=== PATIENT | female | born 1960 | race Caucasian/White ===

== ENCOUNTER 2020-02-19 20:15 | Emergency (ER) | payer BC, SELFPAY ==
--- NOTE | ~2020-02-19 | XR_ITS ---
EXAMINATION: XR chest 2V DATE: 02/19/2020 21:57 INDICATION: Right chest and clavicle pain TECHNIQUE: PA and lateral views of the chest are obtained. COMPARISON: 01/28/2019 FINDINGS: The lungs are free of acute opacities. There is no pleural effusion or pneumothorax. The ca rdiomediastinal silhouette is normal. There is mild thoracic spondylosis. The right clavicle is unrem arkable. IMPRESSION: 1. No acute cardiopulmonary abnormality. Reviewed, dictated and finalized at location A.
--- NOTE | 2020-02-19 20:20 | ECG_ITS ---
Measurements Intervals [place] Rate: 115 P: 34 [place]: 160 QRS: -28 QRSD: 73 T: 10 QT: 302 QTc: 419 Interpretive Statements SINUS TACHYCARDIA POOR R WAVE PROGRESSION, ANTERIOR LEADS INFERIOR INFARCT, AGE INDETERMINATE BASELINE ARTIFACT- I, III, AVR, AVL, AVF ABNORMAL ECG Electronically Signed On 02-23-2020 9:00:21 CDT by Jaden Helton D.O.
[2020-02-19 20:21] VITALS: BP 176/105; PULSE 122; RESP 20; TEMP 36.8; O2SAT 98
[2020-02-19 21:34] VITALS: PULSE 99
[2020-02-19 21:35] VITALS: BP 122/81; PULSE 97; RESP 18; O2SAT 99
[2020-02-19 21:47] LABS: Basophils Percent Auto 0.6 % (0.2-1.2); Eosinophils Absolute Auto 0.1 K/mm3 (0-0.3); Eosinophils Percent Auto 1.5 % (0-4.4); Hemoglobin 12.6 g/dL (12.0-15.0); Immature Granulocyte Absolute 0.01 K/mm3 (0.00-0.031); Immature Granulocyte Percent A 0.1 % (0-0.5); Lymphocytes Absolute Auto 2.53 K/mm3 (0.9-3.2); Lymphocytes Percent Auto 37.9 % (18.3-44.2); Mean Corpuscular HGB Conc 33.2 g/dl (32-36); Mean Corpuscular Hemoglobin 29.2 pg (26-34); Mean Platelet Volume 9.3 fl (7.4-10.4); Monocytes Absolute Auto 0.4 K/mm3 (0.1-0.6); Monocytes Percent Auto 6.1 % (2.6-8.5); Neutrophils Absolute Auto 3.6 K/mm3 (1.3-6.7); Neutrophils Percent Auto 53.8 % (45.5-73.1); Platelet Count Result 246 k/mm3 (150-375); Red Blood Count 4.32 M/mm3 (4.2-5.4); Red Cell Distribution Width 12.4 % (11.5-14.5); White Blood Count 6.7 K/mm3 (4.5-10.0)
[2020-02-19 22:00] LABS: Blood Urea Nitrogen 26 mg/dL (7-17); Calcium 9.2 mg/dL (8.4-10.2); Carbon Dioxide 24 mmol/L (22-30); Chloride 99 mmol/L (98-107); Estimated CRCL calculation 102 ml/min; Estimated Glomerular Filt Rate > 60; Glucose 195 mg/dL (65-105); Potassium 4.4 mmol/L (3.4-5.0); Sodium 132 mmol/L (137-145)
[2020-02-19 22:04] LABS: D Dimer 0.27 ug/mL (<0.48)
[2020-02-19 22:12] LABS: Troponin I < 0.012 ng/mL (0.000-0.034)
--- NOTE | 2020-02-19 23:14 | ED.CHESTPAIN ---
HPI - Chest Pain General Chief Complaint: Chest Pain Stated Complaint: R sided CP, lower neck swelling Time Seen by Provider: 02/19/20 21:20 Source: patient Mode of arrival: ambulatory History of Present Illness HPI narrative: 59-year-old female Complains of a history of right arm shoulder and chest pain for weeks to months The last couple of days it has been more in the upper right chest and around the medial clavicle She is also noticed some swelling in the upper chest There is no cough or fever No exertional symptoms MD complaint: chest pain Onset (ago): week(s) Timing of current episode: episodic Prior episodes: Yes Onset: during rest and during exertion Pain location: right chest and lateral Pain radiation: right shoulder Severity: mild Quality: aching and heaviness Relieving factors: nothing Exacerbating factors: other (Some movements of her arm) Related Data Allergies Allergy/AdvReac Type Severity Reaction Status Date / Time NKDA Allergy Unknown Uncoded 04/20/03 15:17 NKFA Allergy Unknown Uncoded 04/20/03 15:17 Review of Systems Review of Systems: All systems reviewed & are unremarkable except as noted in HPI and below Constitutional: Constitutional: Denies fever(s) and Denies weakness Eyes: Eyes: Denies no additional eye complaints ENT: Denies dysphagia and Denies sore throat Cardiovascular: Cardiovascular: Reports chest pain, Denies rapid heart rate, Reports radiating jaw, neck or arm pain and Denies slow heart rate Respiratory: Respiratory: Denies cough and Denies dyspnea Gastrointestinal: Gastrointestinal: Denies diarrhea and Denies vomiting Musculoskeletal: Musculoskeletal: Reports joint swelling (sternoclavicular on r) Neurologic: Denies headache(s), Denies focal weakness, Denies numbness and Denies weakness Exam Const: General: alert Orientation/consciousness: patient oriented x3 HENMT: Head: normal to inspection Eyes: Conjunctivae: conjunctivae normal EOM: EOMs intact bilaterally Neck: Neck: no lymphadenopathy Resp: Effort & Inspection: normal respiratory effort Auscultation: clear to auscultation bilaterally Cardio: Rate: regular rate Rhythm: regular rhythm Skin: General skin exam: normal color Neuro: General: patient oriented x3 and moves all extremities Extrem: Other: there is swelling and mild tenderness to the right sc joint Course Course Emergency Course: c/o seem to be ms related, hs =1, w/u neg Vital Signs Vital signs: Vital Signs Temperature 36.8 C 02/19/20 20:21 Pulse Rate 122 H 02/19/20 20:21 Respiratory Rate 20 02/19/20 20:21 Blood Pressure 176/105 H 02/19/20 20:21 Pulse Oximetry 98 02/19/20 20:21 Temperature 36.8 C 02/19/20 20:21 Pulse Rate 99 02/19/20 23:19 Respiratory Rate 18 02/19/20 23:19 Blood Pressure 110/68 02/19/20 23:19 Pulse Oximetry 98 02/19/20 23:19 MDM - Chest Pain Lab Data Result diagrams: 02/19/20 21:41 02/19/20 21:41 Labs: Lab Results 02/19/20 02/19/20 02/19/20 Range/Units 21:41 21:41 21:41 WBC 6.7 (4.5-10.0) K/mm3 RBC 4.32 (4.2-5.4) M/mm3 Hgb 12.6 (12.0-15.0) g/dL Hct 38.0 (37.0-47.0) % MCV 88.0 (80-100) fl MCH 29.2 (26-34) pg MCHC 33.2 (32-36) g/dl RDW 12.4 (11.5-14.5) % Plt Count 246 (150-375) k/mm3 MPV 9.3 (7.4-10.4) fl Immature Gran % (Auto) 0.1 (0-0.5) % Neut % (Auto) 53.8 (45.5-73.1) % Lymph % (Auto) 37.9 (18.3-44.2) % Stanton % (Auto) 6.1 (2.6-8.5) % Eos % (Auto) 1.5 (0-4.4) % Baso % (Auto) 0.6 (0.2-1.2) % Lymph # (Auto) 2.53 (0.9-3.2) K/mm3 Stanton # (Auto) 0.4 (0.1-0.6) K/mm3 Eos # (Auto) 0.1 (0-0.3) K/mm3 Baso # (Auto) 0.0 (0.0-0.1) K/mm3 Abs Immat Gran (auto) 0.01 (0.00-0.031) K/mm3 Absolute Neuts (auto) 3.6 (1.3-6.7) K/mm3 Absolute Nucleated RBC 0.0 (0.0-0.012) K/mm3 Nucleated RBC % 0.0 (0.0-0.2) % D-Dimer 0.27 (<0.48)
[2020-02-19 23:19] VITALS: BP 110/68; PULSE 99; RESP 18; O2SAT 98
== END 2020-02-20 00:15 | disposition home or self-care (01) ==
PROVIDERS: Emergency Provider Emergency Medicine; PCP Internal Medicine Endocrinology, Diabetes & Metabolism
DX: M19.011 Primary osteoarthritis, right shoulder (principal); R94.31 Abnormal electrocardiogram [ECG] [EKG]; R00.0 Tachycardia, unspecified
CPT/HCPCS: 36415; 71046; 80048; 84484; 85025; 85380; 93005; 99284

== ENCOUNTER 2020-02-21 10:25 | Emergency (ER) | payer BC, SELFPAY ==
[2020-02-21] VITALS (23 sets, daily range): BP systolic 108–187; BP diastolic 64–80; PULSE 92–126; RESP 10–24; TEMP 37.2; O2SAT 97–100
--- NOTE | ~2020-02-21 | XR_ITS ---
EXAMINATION: XR chest 2V DATE: 02/21/2020 10:58 INDICATION: Heart palpitations TECHNIQUE: Frontal and lateral views of the chest are obtained COMPARISON: 02/19/2020 FINDINGS: The lungs are free of acute opacities. There is no pleural effusion or pneumothorax. The ca rdiomediastinal silhouette is normal. There is mild thoracic spondylosis. IMPRESSION: 1. No acute cardiopulmonary abnormality. Reviewed, dictated and finalized at location A.
--- NOTE | ~2020-02-21 | CT_ITS ---
EXAMINATION: CTA chest PE protocol DATE: 02/21/2020 11:42 INDICATION: Chest pain and heart palpitations TECHNIQUE: Computed tomography angiography (CTA) of the chest was performed with 100 mL Omnipaque-350 intravenous contrast timed to evaluate the pulmonary arteries. Coronal maximum intensity projection 3D-reconstructions were created by the technologist. The dose-length product (DLP) was 761.42 mGy-cm. Automated exposure control and iterative reconstruction technique were employed. COMPARISON: None. FINDINGS: The pulmonary arteries are well-opacified. No pulmonary embolism is identified. The lungs a re free of acute opacities. There is no pleural effusion or pneumothorax. No pathologically enlarged thoracic lymph nodes are identified. The heart size is normal. The liver is diffusely low in attenuat ion when compared with the spleen, consistent with hepatic steatosis. There is moderate thoracic spon dylosis. IMPRESSION: 1. No pulmonary embolism or acute cardiopulmonary abnormality. Reviewed, dictated and finalized at location A.
--- NOTE | 2020-02-21 10:31 | ECG_ITS ---
Measurements Intervals [place] Rate: 116 P: 50 [place]: 136 QRS: -23 QRSD: 81 T: 44 QT: 314 QTc: 437 Interpretive Statements SINUS TACHYCARDIA INFERIOR INFARCT, AGE INDETERMINATE BASELINE ARTIFACT- I, II ABNORMAL ECG Electronically Signed On 02-21-2020 15:01:57 CDT by Jaden Helton D.O.
[2020-02-21 10:50] LABS: Basophils Percent Auto 0.3 % (0.2-1.2); Eosinophils Absolute Auto 0.1 K/mm3 (0-0.3); Eosinophils Percent Auto 1.5 % (0-4.4); Hematocrit 39.2 % (37.0-47.0); Immature Granulocyte Absolute 0.02 K/mm3 (0.00-0.031); Immature Granulocyte Percent A 0.3 % (0-0.5); Lymphocytes Absolute Auto 2.09 K/mm3 (0.9-3.2); Lymphocytes Percent Auto 30.5 % (18.3-44.2); Mean Corpuscular HGB Conc 33.2 g/dl (32-36); Mean Corpuscular Volume 87.5 fl (80-100); Mean Platelet Volume 9.7 fl (7.4-10.4); Monocytes Absolute Auto 0.4 K/mm3 (0.1-0.6); Monocytes Percent Auto 5.5 % (2.6-8.5); Neutrophils Absolute Auto 4.3 K/mm3 (1.3-6.7); Neutrophils Percent Auto 61.9 % (45.5-73.1); Platelet Count Result 272 k/mm3 (150-375); Red Blood Count 4.48 M/mm3 (4.2-5.4); Red Cell Distribution Width 12.3 % (11.5-14.5); White Blood Count 6.9 K/mm3 (4.5-10.0)
[2020-02-21 11:00] LABS: INR 0.8; Prothrombin Time 11.2 Seconds (11.1-14.7)
[2020-02-21 11:01] LABS: Partial Thromboplastin Time 27.5 SECONDS (22.3-36.8)
--- NOTE | 2020-02-21 11:06 | ED.ARRPALP ---
HPI - Arrhythmia/Palpitations General Chief Complaint: Arrhythmia/Palpitations Stated Complaint: Vibration in chest Time Seen by Provider: 02/21/20 10:27 Source: RN notes reviewed and old records reviewed History of Present Illness HPI narrative: Patient presents emergency department from home for palpitations. Patient states that Vinayak when she has a vibration in her left chest. She states she feels this when she takes a deep breath is located over the left lateral chest and does not radiate. Patient states that the symptoms will come and go. She denies any fevers or chills chest pain shortness of breath abdominal pain or any other symptoms Related Data Home Medications Medication Instructions Recorded Confirmed aspirin 650 mg PRN 02/21/20 glipizide 5 mg PO 02/21/20 liraglutide [Victoza 3-Cornell] 1.8 mg SUBCUT 02/21/20 lisinopril-hydrochlorothiazide 20 - 25 tablet 02/21/20 metformin 1,000 mg PO 02/21/20 Allergies Allergy/AdvReac Type Severity Reaction Status Date / Time No Known Allergies Allergy Verified 02/21/20 10:42 Review of Systems Review of Systems: Narrative: Gen.: Denies fevers or chills ENT: Denies congestion Respiratory: Denies shortness of breath or cough CV: See HPI GI: Denies abdominal pain nausea, emesis or diarrhea denies burning, urgency, frequency or hematuria Musculoskeletal: Denies back pain or muscle pain Neuro: Denies numbness, tingling, weakness or focal weakness Skin: Denies rash Except as documented, all other systems reviewed and negative [facility] Past Medical History Medical History (Updated 02/21/20 @ 14:22 by Sergio Driver DO) Hypertension Social History Social History (Updated 02/21/20 @ 11:06 by Sergio Driver DO) Smoking status: Never smoker Exam Narrative: Exam Narrative: APPEARANCE: No acute distress, nontoxic, resting in bed EYES: EOMI HEENT: Normocephalic, atraumatic, OMM RESPIRATORY: No respiratory distress Clear to auscultation bilaterally with no rhonchi wheezing or rales. CARDIOVASCULAR: Regular rate and rhythm without murmurs rubs or gallops. ABDOMINAL: Soft, nontender, nondistended, no rebound or guarding MUSCULOSKELETAl: Moves all extremities. No clubbing, cyanosis or edema. NEURO: Awake and alert. Following commands, speech normal, no focal deficits SKIN:: Warm, dry. No rashes lesions or abrasions PSYCHIATRIC: Normal affect/mood, Course Course Emergency Course: Reviewed patient's old records. Discussed with patient results of workup and diagnosis. Discussed need for follow-up with primary care, proper use of medication, and reasons to return to the emergency department. Patient understands and agrees to current treatment plan Vital Signs Vital signs: Vital Signs Temperature 98.9 F 02/21/20 10:29 Pulse Rate 126 H 02/21/20 10:29 Respiratory Rate 16 02/21/20 10:29 Blood Pressure 187/80 H 02/21/20 10:29 Pulse Oximetry 97 02/21/20 10:29 Temperature 98.9 F 02/21/20 10:29 Pulse Rate 94 02/21/20 14:24 Respiratory Rate 12 02/21/20 14:24 Blood Pressure 108/64 02/21/20 12:46 Pulse Oximetry 98 02/21/20 14:24 MDM - Arrhythmia/Palpitations MDM Narrative Medical decision making narrative: Patient's EKGs and labs are without significant high risk changes. Cardiac risk factors reviewed. Patient is felt likely low risk for ACS and reasonable for further risk stratification testing as an outpatient. Pain no aneurysm pneumonia or PE seen on CTA chest patient is felt to be a reasonable candidate for continued evaluation as an outpatient Lab Data Result diagrams: 02/21/20 10:43 02/21/20 10:43 Labs: Lab Results 02/21/20 02/21/20 02/21/20 Range/Units 10:43 10:43 10:43 WBC 6.9 (4.5-10.0) K/mm3 RBC 4.48 (4.2-5.4) M/mm3 Hgb 13.0 (12.0-15.0) g/dL Hct 39.2 (37.0-47.0) % MCV 87.5 (80-100) fl MCH 29.0 (26-34) pg MCHC 33.2 (32-36) g/dl RDW 12.3 (11.
[2020-02-21 11:16] LABS: Troponin I < 0.012 ng/mL (0.000-0.034)
[2020-02-21 11:19] LABS: Blood Urea Nitrogen 25 mg/dL (7-17); Calcium 9.4 mg/dL (8.4-10.2); Carbon Dioxide 23 mmol/L (22-30); Chloride 99 mmol/L (98-107); Estimated CRCL calculation 100 ml/min; Estimated Glomerular Filt Rate > 60; Glucose 275 mg/dL (65-105); Magnesium 1.8 mg/dL (1.6-2.3); Sodium 132 mmol/L (137-145)
[2020-02-21] MEDS: SODIUM CHLORIDE 0.9% IV 1,000 ML 999 ML IV CONT (14:00)
[2020-02-21 14:16] LABS: Troponin I < 0.012 ng/mL (0.000-0.034)
== END 2020-02-21 14:44 | disposition home or self-care (01) ==
PROVIDERS: Emergency Provider Emergency Medicine; PCP Internal Medicine Endocrinology, Diabetes & Metabolism
DX: R00.2 Palpitations (principal); I10 Essential (primary) hypertension; Z79.84 Long term (current) use of oral hypoglycemic drugs; R00.0 Tachycardia, unspecified; R94.31 Abnormal electrocardiogram [ECG] [EKG]
CPT/HCPCS: 36415; 71046; 71275; 80048; 83735; 84443; 84484; 85025; 85610; 85730; 93005; 96360; 99284; J7030; Q9967

== ENCOUNTER 2020-09-08 07:54 | Outpatient (CLI) | payer BC, SELFPAY ==
--- NOTE | ~2020-09-08 | US_ITS ---
EXAMINATION: US art doppler w press LE BI DATE: 09/08/2020 09:15 INDICATION: Diabetic foot TECHNIQUE: Segmental pressures and plethysmographic and Doppler waveforms of the brachial and lower e xtremity arteries were obtained. COMPARISON: None. FINDINGS: Right and left brachial artery pressures of 143m Hg and 149m Hg, respectively, are concordant (normal difference <= 30 mmHg). The left high-thigh index is 1.13 (normal > 1.2). The right high thigh press ure index was unable to be obtained due to inability to occlude the vessels in the right thigh. The right ankle-brachial index (DEVON) is 1.16 (normal >= 0.9-1). The right great toe-brachial index (T BI) is 0.94 (normal >= 0.6-0.8). The right lower extremity segmental pressure gradients are normal (n ormal gradients <= 20-30 mmHg between adjacent levels on the same leg or the same levels on the two l egs). Arterial waveforms are triphasic with brisk systolic upstrokes throughout the right lower limb. The left DEVON is 1.01. The left TBI is unable to be obtained due to inability to occlude the vessel. T he left lower extremity segmental pressure gradients are normal accounting for likely artifactually e levated pressure at the left [id number] popliteal artery. Arterial waveforms are triphasic at the left common femoral, popliteal and posterior tibial arteries and biphasic at the left superficial fe moral and dorsalis pedis arteries with brisk systolic upstrokes throughout. IMPRESSION: 1. Normal DEVON's bilaterally. No significant occlusive disease. Reviewed, dictated and finalized at location A. CTOR NON PROFIT
== END 2020-09-08 07:55 | disposition home or self-care (01) ==
PROVIDERS: PCP Internal Medicine; Visit Provider Podiatrist Foot & Ankle Surgery
DX: E11.621 Type 2 diabetes mellitus with foot ulcer (principal); L97.529 Non-pressure chronic ulcer of other part of left foot with unspecified severity
CPT/HCPCS: 93923

== ENCOUNTER 2021-07-08 13:15 | Emergency (ER) | payer BC, SELFPAY ==
[2021-07-08 13:30] VITALS: BP 140/81; PULSE 118; RESP 16; TEMP 36.5; O2SAT 99
--- NOTE | 2021-07-08 14:17 | ED.FEMALEGU ---
HPI - Female Genitourinary General Chief complaint: Urogenital-Female Stated complaint: uti Time Seen by Provider: 07/08/21 14:18 Source: patient, RN notes reviewed and old records reviewed Mode of arrival: ambulatory Limitations: no limitations History of Present Illness HPI Narrative: 60 YEAR OLD FEMALE WHO PRESENTS TO [facility] WITH COMPLAINTS OF A FEW WEEKS OF BURNING WITH URINATION, DARKER URINE THAN NORMAL WITH SOME VAGINAL ITCHING.PATIENT STATES THAT SHE HAS BEEN DRINKING MORE CAFFEINE THAN USUAL. PATIENT DENIES ANY SUPRAPUBIC PAIN OR ANY CVA TENDERNESS, NO FEVERS CHILLS OR SWEATS, DENIES ANY NAUSEA OR VOMITING OR DIARRHEA. SHE STATES THAT SHE HAS TAKEN SOME AZO FOR HER SYMPTOMS THE PAST 2 DAYS. MD elicited complaint: dysuria Related Data Home Medications Medication Instructions Recorded Confirmed glipizide 5 mg PO 02/21/20 liraglutide [Victoza 3-Cornell] 1.8 mg SUBCUT 02/21/20 lisinopril-hydrochlorothiazide 20 - 25 tablet 02/21/20 metformin 1,000 mg PO 02/21/20 Allergies Allergy/AdvReac Type Severity Reaction Status Date / Time No Known Allergies Allergy Verified 07/08/21 13:36 Review of Systems Review of Systems: CONSTITUTIONAL: Denies fever, chills, or sweats. EYES: Denies visual changes, redness, or discharge. ENT: Denies rhinorrhea, congestion, sore throat, or otalgia. CARDIOVASCULAR: Denies chest pain, palpitations, or edema. RESPIRATORY: Denies cough or dyspnea. GASTROINTESTINAL: Denies abdominal pain, nausea, vomiting, or diarrhea. GENITOURINARY: POSITIVE dysuria NO VISIBLE hematuria, SOME VAGINAL ITCHING. SKIN: Denies rash or itching. MUSCULOSKELETAL: Denies back pain, joint pain, or myalgia. NEUROLOGIC: Denies headache, numbness, or weakness. PSYCHIATRIC: Denies anxiety or depression. All systems reviewed & are unremarkable except as noted in HPI and below PMFSH Past Medical History Medical History (Updated 07/14/21 @ 20:00 by Mayi Lal NP) Bronchitis Diabetes Hypertension Post-menopausal UTI (urinary tract infection) Surgical History Surgical History (Updated 07/14/21 @ 20:00 by Mayi Lal NP) Previous section X2 Family History Family History (Updated 07/14/21 @ 20:01 by Mayi Lal NP) Other Family history non-contributory Social History Social History (Updated 07/14/21 @ 20:01 by Mayi Lal NP) Smoking status: Never smoker Alcohol intake: current Alcohol use details: RARE SOCIAL Substance use: never Living arrangements: with family Gender identity (if verbalized by the patient): Female Comments At time of signature, agree with nursing past medical, surgical, social and family history. There is no relevant family history pertinent to the presenting complaint Exam Narrative: GENERAL: Well-appearing, well-nourished, and in no acute distress. HEAD: Normocephalic, atraumatic. EYES: PERRLA and EOMI. ENT: Nares clear, no rhinorrhea or epistaxis. Mucous membranes moist.TM 'S NORMAL THROAT NORMAL NECK: Supple.NO LYMPHADENOPATHY CHEST: Clear to auscultation. No respiratory distress.SAO2 99% on room air HEART: Regular rate and rhythm. No murmur heard. Normal peripheral pulses. ABDOMEN: Soft, nontender, nondistended, normal active bowel sounds.no suprapubic tenderness or any CVA tenderness on palpation, some dysuria EXTREMITIES: Normal range of motion. No edema. SKIN: Warm, dry, no rash. NEURO: No focal deficits. Alert and oriented x3. Course Vital Signs Vital signs: Vital Signs Temperature 36.5 C 07/08/21 13:30 Pulse Rate 118 H 07/08/21 13:30 Respiratory Rate 16 07/08/21 13:30 Blood Pressure 140/81 07/08/21 13:30 Pulse Oximetry 99 07/08/21 13:30 Temperature 36.5 C 07/08/21 13:30 Pulse Rate 118 H 07/08/21 13:30 Respiratory Rate 16 07/08/21 13:30 Blood Pressure 140/81 07/08/21 13:30 Pulse Oximetry 99 07/08/21 13:30 MDM - Female Genitourinary Differential Diagnosis Differen
== END 2021-07-08 14:41 | disposition home or self-care (01) ==
PROVIDERS: Emergency Provider Registered Nurse; PCP Internal Medicine
DX: N39.0 Urinary tract infection, site not specified (principal); N89.8 Other specified noninflammatory disorders of vagina; I10 Essential (primary) hypertension
CPT/HCPCS: 81003; 87086; 87088; 99213; G0463

== ENCOUNTER → 2021-08-28 17:06 | Outpatient (CLI) | payer BC, SELFPAY ==
--- NOTE | ~2021-08-28 | DEXA_ITS ---
Bone Density Report Name: Sandy Senior Age: 60 Sex: Female Ethnicity: White Date of : 1960 Indication: postmenopausal; screening for osteoporosis; height loss; Referring Provider: Jonathan, Kulwinder Han Study: Bone densitometry was performed. Exam Date: August 28, 2021 Accession number: [id number] Bone Density: Region BMD T-score Z-score Classification AP Spine (L1-L4) 1.224 1.6 2.9 Normal Femoral Neck (Left) 1.224 3.4 4.6 Normal Total Hip (Left) 1.249 2.5 3.4 Normal Femoral Neck (Right) 1.207 3.2 4.5 Normal Total Hip (Right) 1.261 2.6 3.5 Normal Total Hip Mean 1.255 2.6 3.5 Normal World Health Organization criteria for BMD impression classify patients as: Normal (T-score at or above -1.0), Osteopenia (T-score between -1.0 and -2.5), or Osteoporosis (T-score at or below -2.5). 10-year Fracture Risk: FRAX not reported because: All T-scores for Spine Total, Hip Total, Femoral Neck at or above -1.0 Clinical Information Provided by Patient: Has used the following medications: Vitamin D Patient maximum height was 70 Menopause Age: 53 No regular weight bearing exercise Drinks caffeinated beverages Onset of menses at age 15 Number of children 2 Impression: The patient has normal bone mass. Discussion: LOW RISK OF FRACTURE; BONE DENSITY IS WELL ABOVE THE MINIMUM DESIRABLE LEVEL AND ABOVE AVERAGE FOR AGE AND SEX AT ALL SKELETAL SITES TESTED. This person's bone density is above expected limits for age and sex. This is rarely clinically significant, but should be pursued if there are significant musculoskeletal complaints. The patient should follow a healthful lifestyle (good nutrition with adequate calcium and vitamin D, and appropriate weight-bearing exercise). Follow-Up: Consider repeating this study in 5 years or sooner if there is some new clinical indication. Reported by: LING on 08/28/2021 5:35:00 PM. Reviewed, dictated and finalized at location ARod DAWKINS
== END ==
PROVIDERS: PCP Internal Medicine; Visit Provider Internal Medicine
DX: Z78.0 Asymptomatic menopausal state (principal); E78.2 Mixed hyperlipidemia; E11.9 Type 2 diabetes mellitus without complications; I10 Essential (primary) hypertension
CPT/HCPCS: 77080

== ENCOUNTER → 2021-10-17 07:10 | Outpatient (CLI) | payer BC, SELFPAY ==
--- NOTE | ~2021-10-17 | MM_ITS ---
EXAMINATION: MM screening [place] BI w derik HISTORY: Screening mammogram TECHNIQUE: Craniocaudal and mediolateral oblique 3-D tomosynthesis images were obtained and synthetic 2-D images were generated. CAD analysis was submitted and interpreted. COMPARISON: No prior mammogram is available for comparison at this institution. BREAST PARENCHYMAL COMPOSITION: The breasts are almost entirely fatty. FINDINGS: RIGHT BREAST: There is no evidence of suspicious mass, calcification, or architectural distortion to suggest malignancy. LEFT BREAST: An asymmetry is present in the middle third of the slightly outer breast 4.5 cm from the nipple on the craniocaudal view. IMPRESSION: 1. Left breast asymmetry on the craniocaudal view. 2. Additional mammographic views and possible breast ultrasound are recommended. BI-RADS Category 0: Incomplete: Needs additional imaging evaluation. Reviewed, dictated and finalized at location A. LRY MANAGER IMPRESSION: 1. Left breast asymmetry on the craniocaudal view. 2. Additional mammographic views and possible breast ultrasound are recommended . BI-RADS Category 0: Incomplete: Needs additional imaging evaluation.
== END ==
PROVIDERS: PCP Internal Medicine; Visit Provider Internal Medicine
DX: Z12.31 Encounter for screening mammogram for malignant neoplasm of breast (principal); R92.8 Other abnormal and inconclusive findings on diagnostic imaging of breast
CPT/HCPCS: 77063; 77067

== ENCOUNTER 2021-11-10 13:14 | Outpatient (CLI) | payer BC, SELFPAY ==
--- NOTE | ~2021-11-10 | MMUS_ITS ---
EXAMINATION: MM diagnostic antonia LT w derik, US breast LT limited HISTORY: Follow-up left breast mass TECHNIQUE: Additional 3-D tomosynthesis images of left were performed and synthetic 2-D images were g enerated. CAD analysis was submitted and interpreted. High resolution Limited left breast ultrasound was performed. COMPARISON: 10/17/2021 BREAST PARENCHYMAL COMPOSITION: Breast composed of scattered areas of fibroglandular density. FINDINGS: MAMMOGRAPHIC FINDINGS: There is a persistent mass in the lower outer quadrant of the left breast, middle third. No suspiciou s calcifications or architectural distortion. ULTRASOUND: Limited left breast ultrasound: At 4:00 near the nipple there is an oval hypoechoic mass measuring 9 x 9 x 8 mm with posterior shadowing. No internal vascularity. IMPRESSION: 1. Irregular shaped hypoechoic 9 mm left breast mass at 4:00 near the nipple. 2. Ultrasound-guided left breast biopsy recommended. BI-RADS category 4, suspicious findings. Reviewed, dictated and finalized at location A. NEW GRAD IMPRESSION: 1. Irregular shaped hypoechoic 9 mm left breast mass at 4:00 near the nipple. 2. Ultrasound-guided left breast biopsy recommended. BI-RADS category 4, suspicious findings.
== END 2021-11-10 13:15 | disposition home or self-care (01) ==
LOC: ANHIMG 13:16
PROVIDERS: PCP Internal Medicine; Visit Provider Internal Medicine
DX: R92.8 Other abnormal and inconclusive findings on diagnostic imaging of breast (principal)
CPT/HCPCS: 76642; 77061; 77065; G0279